=== PATIENT | male | born 2000 | race Caucasian/White ===

== ENCOUNTER 2025-09-28 20:23 | Emergency (ER) | payer SELFPAY ==
--- NOTE | ~2025-09-28 | CT_ITS ---
CLINICAL HISTORY: n v d wbc 21 CT abdomen and pelvis with contrast Comparison: None provided Findings: The lung bases are clear. Unremarkable gallbladder and solid organs. No urolithiasis. No bowel obstruction, pneumoperitoneum, or pneumatosis. Pelvic contents unremarkable. Normal appendix. The bones are intact. IMPRESSION: No acute findings. This document has been electronically signed by: Ricki Busby MD on 09/29/2025 02:28:35
[2025-09-28 20:31] VITALS: BP 164/92; PULSE 57; RESP 20; TEMP 36.5; O2SAT 99; BMI 31.7
--- NOTE | 2025-09-28 20:40 | ECG_ITS ---
Test Reason : ABD PAIN Blood Pressure : */* mmHG Vent. Rate : 54 BPM Atrial Rate : 54 BPM P-R Int : 146 ms QRS Dur : 92 ms QT Int : 462 ms P-R-T Axes : 21 32 22 degrees QTcB Int : 438 ms Sinus bradycardia with sinus arrhythmia Otherwise normal ECG No previous ECGs available Referred By: Generic ED Physician Electronically Signed By: WALTER KENNEDY MD
[2025-09-28 20:56] LABS: MANUAL DIFF FLAG NO
[2025-09-28 20:57] LABS: Hematocrit 44.5 % (42.0-52.0); Hemoglobin 15.4 g/dl (14.0-18.0); Imm Gran Abs Auto 0.13 X10*3/uL (0.00-0.03); Imm Gran Pct Auto 0.6 % (0.0-0.4); Lymphocytes Absolute Auto 1.0 X10*3/uL (1.2-4.9); Mean Corpuscular HGB Conc 34.6 g/dl (31.0-36.0); Mean Corpuscular Hemoglobin 29.3 pg (27.0-33.0); Mean Corpuscular Volume 84.8 fL (80.0-98.0); NRBC Abs Auto 0.000 X10*3/uL (0.0-0.012); NRBC Pct Auto 0.0 /100WBC (0.0-0.2); Platelet Count 350 X10*3/uL (160-400); Red Blood Count 5.25 X10*6/uL (4.60-5.80); White Blood Count 21.8 X10*3/uL (4.8-10.8)
[2025-09-28 21:12] LABS: Alanine Aminotransferase 17 U/L (0-40); Albumin Level 5.5 g/dL (3.5-5.0); Alkaline Phosphatase 88 U/L (39-117); Anion Gap 21 (12-20); Aspartate Amino Transferase 26 U/L (5-37); Blood Urea Nitrogen 13 mg/dL (9-16); Calcium 10.0 mg/dL (8.4-10.2); Carbon Dioxide 21 mmol/L (22-29); Chloride 106 mmol/L (96-108); Creatinine Clr Calc Pharmacy 159.1; Estimated Glomerular Filt Rate > 60; Lipase 14 U/L (8-78); Potassium 4.0 mmol/L (3.3-5.1); Sodium 144 mmol/L (135-145); Total Protein 8.5 g/dL (6.5-8.0)
[2025-09-28 21:13] LABS: COVID-19 Test Negative (Negative); IDNOW Serial# 55D5AD1C; IDNOW Serial# 58CA691E; Influenza B2 Negative (Negative)
--- NOTE | 2025-09-29 00:27 | ED_ITS ---
HPI - Abdominal Pain General Chief Complaint: Abdominal Pain Stated Complaint: Nausea/vomiting Time Seen by Provider: 09/28/25 23:32 History of Present Illness HPI narrative: Patient is 25 years old presents today with having nausea vomiting diarrhea since 13:00. Diffuse abdominal pain. There is no sick contact. Denies any alcohol use. Vomiting mostly food. Very very small streaks of blood noted. There is no blood in the stool. Patient is from home. The vomiting blood only happen after multiple bouts of nausea. Patient is from home. No travel history. No recent antibiotics. Related Data Previous Rx's ?Medication ?Instructions ?Recorded ondansetron HCl 4 mg tablet 4 mg PO Q6H PRN nausea and 09/29/25 vomiting #14 tabs Allergies Allergy/AdvReac Type Severity Reaction Status Date / Time No Known Allergies Allergy Verified 09/28/25 20:39 Review of Systems Review of Systems Positive nausea vomiting Yes all other systems are reviewed and are negative PMFSH Past Medical History Attestation statement: The following information was validated with the patient. Social History Social History Alcohol intake: current Alcohol intake frequency: 0-2 drinks per day Smoked in Last 30 Days: Yes Substance Use Type: Marijuana Substance Use Frequency: Daily Last Used Substance: Hours (ago) Advance Directives: No Advance Directives Information Provided: Yes Physical Exam ED Exam Exam: Appearance: Alert. Oriented X3. No acute distress. Eyes: Pupils equal, round and reactive to light. ENT: Pharynx normal. Neck: Normal inspection. Neck supple. No lymph nodes noted. No crepitus CVS: Normal heart rate and rhythm. Pulses normal. Normal S1 and S2 Respiratory: No respiratory distress. Breath sounds normal. No Wheezing. No rales Abdomen: Soft and nontender. No rigidity. No distention. good BS x4 Skin: Skin warm and dry. Normal skin color. Normal skin turgor. Extremities: No lower extremity edema. Neurovascular intact to all extremities. No Lacerations. No Rash Neuro: Oriented X 3. No motor deficit. No sensory deficit. Moving all extermities. No slurred speech Vital Signs: Vital Signs - 24 hr 09/28/25 20:31 Temperature 97.7 F Pulse Rate 57 Respiratory Rate 20 Blood Pressure 164/92 H Pulse Oximetry 99 Oxygen Delivery Method Room Air BMI result Body Mass Index 31.7 Medical Decision Making Medical Decision Making MDM Narrative: patient is 25 years old presents today with having nausea vomiting diarrhea. Denies any sick contact. Only streaks of blood initially but patient's hemoglobin came back at 15. Unlikely to have GI bleed more likely from repetitive retching. White count was over 20. CT scan of the abdomen pelvis was ordered to rule out the possibility of perforation possibility of appendicitis. Patient is currently in stable condition. Symptom improved after IV fluids. CT scan done. My initial interpretation that is CT scan is negative in his no perforation noted. Patient is COVID flu are negative. I received sign-out from my colleague Dr. Mendez CT scan does not show any acute abnormality. Differential Diagnosis Differential Diagnoses: The differential diagnosis associated with the presentation includes Perforation gastroenteritis nausea vomiting viral syndrome food poisoning appendicitis Admission/Observation Consideration of admission/observation: Escalation of care including admission/observation considered Lab Data MDM Lab Attestation statement: I reviewed the patient's lab results. 09/28/25 20:51 09/29/25 02:23 Labs: Lab Results 09/28/25 09/29/25 Range/Units 20:51 02:23 WBC 21.8 H (4.8-10.8) X10*3/uL RBC 5.25 (4.60-5.80) X10*6/uL Hgb 15.4 (14.0-18.0) g/dl Hct 44.5 (42.0-52.0) % MCV 84.8 (80.0-98.0) fL MCH 29.3 (27.0-33.0) pg MCHC 34.6 (31.0-36.0) g/dl RDW 12.0 (11.0-16.0) % Plt Count 350 (160-400) X10*3/uL MPV 8.9 L (9.4-12.4) fL Immature Gran % (Auto) 0.6 H (0.0-0.4) % Neut % (Auto) 87.9 H (45-73) % Lymph % (Auto) 4.8 L (20-40) % [place] % (Auto) 6.2 (2-11) % Eos % (Auto) 0.1 (0-4) % Baso % (Auto) 0.4 (0-2) % Lymph # (Auto) 1.0 L (1.2-4.9) X10*3/uL [place] # (Auto) 1.4 H (0.1-1.2) X10*3/uL Eos # (Auto) 0.0 (0.0-0.4) X10*3/uL Baso # (Auto) 0.1 (0.0-0.2) X10*3/uL Abs Immat Gran (auto) 0.13 H (0.00-0.03) X10*3/uL Absolute Neuts (auto) 19.2 H (2.0-8.3) x10*3/uL Absolute Nucleated RBC 0.000 (0.0-0.012) X10*3/uL Nucleated RBC % (auto) 0.0 (0.0-0.2) /100WBC Sodium 144 143 (135-145) mmol/L Potassium 4.0 3.8 (3.3-5.1) mmol/L Chloride 106 108 (96-108) mmol/L Carbon Dioxide 21 L 24 (22-29) mmol/L Anion Gap 21 H 15 (12-20) BUN 13 14 (9-16) mg/dL Creatinine 0.91 0.85 (0.5-1.4) mg/dL Estim Creat Clear Calc 159.1 170.4 Estimated GFR > 60 > 60 Random Glucose 103 104 (60-115) mg/dL Calcium 10.0 9.1 D (8.4-10.2) mg/dL Total Bilirubin 0.6 (0.0-1.0) mg/dL AST 26 (5-37) U/L ALT 17 (0-40) U/L Alkaline Phosphatase 88 (39-117) U/L Total Protein 8.5 H (6.5-8.0) g/dL Albumin 5.5 H (3.5-5.0) g/dL Lipase 14 (8-78) U/L COVID-19 (RAJI) Negative (Negative) COVID-19 Clin Com See Note Influenza Type A (ASHOK) Negative (Negative) Influenza Type B (ASHOK) Negative (Negative) Influenza A & B Note See Note Independent Interpretation I performed an independent interpretation of an: CT Scan Interpretation: The lung bases are clear. Unremarkable gallbladder and solid organs. No urolithiasis. No bowel obstruction, pneumoperitoneum, or pneumatosis. Pelvic contents unremarkable. Normal appendix. The bones are intact. IMPRESSION: No acute findings Chronic Conditions nausea vomiting Social Determinants Patient?s care significantly limited by Social Determinants of Health including: Problems related to primary support group Medications Administered Discontinued Medications Generic Name Dose Route Start Last Admin Trade Name Freq PRN Reason Stop Dose Admin Sodium Chloride 1,000 mls @ 999 mls/hr 09/29/25 00:30 09/29/25 02:41 Ns IV 09/29/25 01:30 Infused .Q1H1M TAYA Infusion Sodium Chloride 1,000 mls @ 999 mls/hr 09/29/25 01:15 09/29/25 00:47 Ns IV 09/29/25 02:15 999 mls/hr .Q1H1M TAYA Administration Iohexol 100 ml 09/29/25 01:07 09/29/25 01:07 Iohexol 350 Mg/Ml 100 Ml Infus..Btl IV 09/29/25 01:08 85 ml ONCE ONE Administration Ketorolac Tromethamine 15 mg 09/29/25 00:26 09/29/25 00:41 Ketorolac Tromethamine 15 Mg/Ml Vial IVPUSH 09/29/25 00:27 15 mg ONCE ONE Administration Ondansetron HCl 4 mg 09/29/25 00:26 09/29/25 00:41 Ondansetron Hcl 4 Mg/2 Ml Vial IVPUSH 09/29/25 00:27 4 mg ONCE ONE Administration Critical Care Time Critical Care Time Critical Care Time: Yes Total Critical Care Time: 35 Attestation: I have personally provided critical care time. Time includes review of lab data, radiology results, discussion with consultants, and monitoring for potential decompensation. Intervention performed as documented. Discharge Plan Discharge Clinical Impression: Nausea vomiting and diarrhea, Abdominal pain Patient Disposition: Home, Self-Care Instructions: Abdominal Pain (ED) Additional Instructions: Please follow-up with your primary care physician tomorrow. If you have any worsening or new symptoms, please return to the emergency room or call 911 Prescriptions: New ondansetron HCl 4 mg tablet 4 mg PO Q6H PRN (Reason: nausea and vomiting) Qty: 14 0RF Stand Alone Forms: Work/School Release Print Language: Belarusian
--- OUTSIDE RECORDS SUMMARY | 2025-09-29 00:57 | XMS_ITS | Clinical Summary ---
Author Organization [facility] Address [address] [place] [address] Care Team Providers Care Custom Bookbinder Name Role Phone Unavailable Primary Care Provider Unavailabl e Social History Tobacco Use Types Packs/Day Years Used Date Smoking Tobacco: Never Assessed Sex and Gender Information Value Date Recorded Sex Assigned at Not on file Legal Sex Male 6:30 AM EDT Gender Identity Not on file Sexual Orientation Not on file Plan of Treatment Not on file Medical Devices Not on file Insurance [facility] [place] [id number] [facility] [address] [place] [id number]
[2025-09-29] MEDS: iohexoL 350 MG/ML 100 ML INFUS..BTL IV (01:07)
[2025-09-29 02:41] LABS: Anion Gap 15 (12-20); Blood Urea Nitrogen 14 mg/dL (9-16); Calcium 9.1 mg/dL (8.4-10.2); Carbon Dioxide 24 mmol/L (22-29); Chloride 108 mmol/L (96-108); Creatinine Clr Calc Pharmacy 170.4; Estimated Glomerular Filt Rate > 60; Potassium 3.8 mmol/L (3.3-5.1); Sodium 143 mmol/L (135-145)
[2025-09-29 03:03] VITALS: BP 142/74; PULSE 57; RESP 20; TEMP 36.5; O2SAT 99
== END 2025-09-29 03:10 | disposition home or self-care (01) ==
PROVIDERS: Emergency Medicine Emergency Medical Services; Emergency Provider Emergency Medicine; PCP Internal Medicine
DX: R10.9 Unspecified abdominal pain (principal); R11.2 Nausea with vomiting, unspecified; R19.7 Diarrhea, unspecified; Z03.818 Encounter for observation for suspected exposure to other biological agents ruled out
CPT/HCPCS: 36415; 74177; 80048; 80053; 83690; 85025; 87502; 87635; 93005; 96361; 96374; 96375; 99285; J1885; J2405; Q9967

== ENCOUNTER → 2025-09-28 20:40 | Outpatient (BNV) | payer SELFPAY | PROVIDERS: Emergency Provider Emergency Medicine; PCP Internal Medicine; Visit Provider Internal Medicine Cardiovascular Disease | DX: R00.1 Bradycardia, unspecified (principal); I49.9 Cardiac arrhythmia, unspecified | CPT/HCPCS: 93010 ==

== ENCOUNTER → 2025-09-29 00:27 | Outpatient (BNV) | payer SELFPAY | PROVIDERS: Emergency Provider Emergency Medicine; PCP Internal Medicine; Visit Provider Radiology Diagnostic Radiology | DX: D72.829 Elevated white blood cell count, unspecified (principal); R11.11 Vomiting without nausea; R19.7 Diarrhea, unspecified | CPT/HCPCS: 74177 ==